=== PATIENT | male | born 1985 | race Caucasian/White ===

== ENCOUNTER 2022-11-16 22:43 | Observation (INO) | payer OTHER ==
[~2022-11-16] VITALS: Ht 177.8 cm; Wt 73.9 kg
[2022-11-16] MEDS ORDERED: OMEP-173 PO (23:54)
[2022-11-16] MEDS ORDERED: BUSP10TA PO (23:54)
[2022-11-16] MEDS ORDERED: OLAN1TAB20 PO (23:54)
[2022-11-17 01:11] LABS: HEMATOCRIT 37.3 % (42.0-52.0); HEMOGLOBIN 12.8 g/dl (13.5-17.5); MEAN CORPUSCULAR HGB CONC 34.3 g/dl (32.0-36.5); MEAN CORPUSCULAR VOLUME 90.3 fl (80.0-96.0); PLATELET COUNT, AUTOMATED 237 10^3/uL (150-450); RED BLOOD COUNT 4.13 10^6/uL (4.30-6.10); WHITE BLOOD COUNT 17.6 10^3/uL (4.0-10.0)
[2022-11-17 01:39] LABS: ETHYL ALCOHOL (ETHANOL) < 0.003 % (0.000-0.010)
[2022-11-17 01:40] LABS: SALICYLATE LEVEL < 3.0 MG/DL (<30)
[2022-11-17 01:41] LABS: ACETAMINOPHEN LEVEL < 2.0 UG/ML (10.0-20.0); ALBUMIN 4.3 G/DL (3.2-5.2); ALKALINE PHOSPHATASE 96 U/L (46-116); ALT/SGPT 25 U/L (7.0-40); AST/SGOT 81 U/L (<34); BILIRUBIN,DIRECT 0.5 MG/DL (<0.4); BILIRUBIN,TOTAL 1.6 MG/DL (0.3-1.2); BLOOD UREA NITROGEN 24 MG/DL (9-23); CARBON DIOXIDE LEVEL 24 MMOL/L (20-31); CHLORIDE LEVEL 103 MMOL/L (98-107); CREATININE FOR GFR 1.03 MG/DL (0.70-1.30); GLOMERULAR FILTRATION RATE > 60.0 (>60); GLUCOSE, FASTING 83 MG/DL (60-100); POTASSIUM SERUM 4.5 MMOL/L (3.5-5.1); SODIUM LEVEL 136 MMOL/L (136-145); TOTAL PROTEIN 7.5 G/DL (5.7-8.2)
[2022-11-17 01:43] LABS: THYROID STIMULATING HORMONE 0.321 uIU/ML (0.55-4.78)
[2022-11-17 02:00] LABS: CPK CREATINE PHOSPHOKINASE 3888 U/L (46-171)
[2022-11-17 02:37] LABS: AMPHETAMINES LEVEL URINE NEGATIVE (NEGATIVE); BARBITURATES URINE NEGATIVE (NEGATIVE); BENZODIAZEPINES URINE NEGATIVE (NEGATIVE); CANNABINOIDS URINE NEGATIVE (NEGATIVE); COCAINE METABOLITE URINE NEGATIVE (NEGATIVE); METHADONE URINE NEGATIVE (NEGATIVE); OPIATES URINE NEGATIVE (NEGATIVE); PHENCYCLIDINE URINE NEGATIVE (NEGATIVE)
[2022-11-17] MEDS ORDERED: NS 1,000 ML IV ONE (03:00)
[2022-11-17] MEDS ORDERED: LR 1,000 ML IV ONE (03:30)
[2022-11-17] MEDS ORDERED: NS 1,000 ML IV SCH (05:45)
[2022-11-17] MEDS ORDERED: LORazepam 2 MG/ML 1ML VIAL IV STA (07:22)
[2022-11-17 09:10] LABS: RSV AMPLIFICATION NEGATIVE (NEGATIVE)
[2022-11-17] MEDS: NS 1,000 ML IV SCH ×2 (09:45→19:18)
[2022-11-17] MEDS ORDERED: ACETAMINOPHEN TAB 650MG DOSE (2X325MG) PO PRN (09:45)
[2022-11-17 10:38] VITALS: BP 101/81; TEMP 98.4; O2SAT 96
[2022-11-17] MEDS ORDERED: LORazepam 2 MG/ML 1ML VIAL IM PRN (11:10)
[2022-11-17] MEDS ORDERED: MED REC IN PROGRESS XX SCH (12:00)
[2022-11-17] MEDS ORDERED: DIVA250T67 PO (12:21)
[2022-11-17] MEDS ORDERED: DIVA500T94 PO (12:21)
[2022-11-17] MEDS ORDERED: EQ S0.65 (12:21)
[2022-11-17] MEDS ORDERED: HYDR50TA70 PO (12:21)
[2022-11-17] MEDS ORDERED: GABA-1171 PO (12:21)
[2022-11-17] MEDS ORDERED: MIRT-11 PO (12:21)
[2022-11-17] MEDS ORDERED: FLUT50SP17 NARES (12:21)
[2022-11-17] MEDS ORDERED: ACET-683 PO (12:21)
[2022-11-17] MEDS ORDERED: ALBU8.5H INH (12:21)
[2022-11-17] MEDS ORDERED: HOME MED LIST COMPLETE! XX SCH (12:35)
[2022-11-17 14:00] VITALS: BP 101/79; TEMP 97.7; O2SAT 95
[2022-11-17 19:54] VITALS: BP 106/77; TEMP 97.5; O2SAT 97
[2022-11-18 05:24] LABS: HEMATOCRIT 34.3 % (42.0-52.0); HEMOGLOBIN 11.6 g/dl (13.5-17.5); MEAN CORPUSCULAR HEMOGLOBIN 30.9 pg (27.0-33.0); MEAN CORPUSCULAR HGB CONC 33.8 g/dl (32.0-36.5); MEAN CORPUSCULAR VOLUME 91.2 fl (80.0-96.0); PLATELET COUNT, AUTOMATED 199 10^3/uL (150-450); RED BLOOD COUNT 3.76 10^6/uL (4.30-6.10); WHITE BLOOD COUNT 7.9 10^3/uL (4.0-10.0)
[2022-11-18] MEDS: NS 1,000 ML IV SCH (05:49)
[2022-11-18 05:57] LABS: ALBUMIN 2.9 G/DL (3.2-5.2); ALKALINE PHOSPHATASE 67 U/L (46-116); ALT/SGPT 22 U/L (7.0-40); AST/SGOT 53 U/L (<34); BILIRUBIN,TOTAL 0.4 MG/DL (0.3-1.2); BLOOD UREA NITROGEN 11 MG/DL (9-23); CALCIUM LEVEL 7.8 MG/DL (8.5-10.1); CARBON DIOXIDE LEVEL 26 MMOL/L (20-31); CHLORIDE LEVEL 109 MMOL/L (98-107); CPK CREATINE PHOSPHOKINASE 1802 U/L (46-171); CREATININE FOR GFR 0.74 MG/DL (0.70-1.30); GLOMERULAR FILTRATION RATE > 60.0 (>60); GLUCOSE, FASTING 102 MG/DL (60-100); MAGNESIUM LEVEL 1.8 MG/DL (1.8-2.4); POTASSIUM SERUM 3.6 MMOL/L (3.5-5.1); SODIUM LEVEL 141 MMOL/L (136-145); TOTAL PROTEIN 5.4 G/DL (5.7-8.2)
[2022-11-18 06:00] VITALS: BP 108/78; TEMP 97.9; O2SAT 98
[2022-11-18] MEDS ORDERED: HALO1TAB19 PO (08:45)
== END 2022-11-18 11:34 | disposition home or self-care (01) ==
LOC: M ED 22:43 → M ED INP 22:44 → ENRESERV 11-17 10:00 → M MSPAV 11-17 10:44
PROVIDERS: ADMIT Family Medicine; ATTEND Family Medicine
DX: M62.82 Rhabdomyolysis (principal); F19.159 Other psychoactive substance abuse with psychoactive substance-induced psychotic disorder, unspecified; R45.1 Restlessness and agitation; R74.8 Abnormal levels of other serum enzymes; F60.2 Antisocial personality disorder; Z76.5 Malingerer [conscious simulation]; F31.9 Bipolar disorder, unspecified; Z65.8 Other specified problems related to psychosocial circumstances; Z79.899 Other long term (current) drug therapy; Z91.030 Bee allergy status
CPT/HCPCS: 36415; 80048; 80053; 80076; 80143; 80307; 81002; 82077; 82550; 83735; 84443; 85027; 87631; 96361; 96374; 99285; J2060